=== PATIENT | female | born 1995 | race Caucasian/White ===

== ENCOUNTER 2021-04-17 22:37 | Emergency (ER) | payer SELFPAY ==
--- NOTE | 2021-04-17 23:00 | NUR ---
Patient was called to be traiged but was not present in waiting room or outside of ER.
== END 2021-04-17 23:35 | disposition left against medical advice (07) ==
LOC: ER 22:40
DX: Z53.21 Procedure and treatment not carried out due to patient leaving prior to being seen by health care provider (principal)